=== PATIENT | male | born 1990 | race Caucasian/White ===

== ENCOUNTER → 2017-09-14 09:38 | Outpatient (CLI) | payer OTHER, SELFPAY ==
[2017-09-16 11:12] LABS: HIV-1/2 Ag & Ab Screen Negative (NEGAT)
== END ==
PROVIDERS: PCP Student in an Organized Health Care Education/Training Program; Visit Provider Student in an Organized Health Care Education/Training Program
DX: Z20.2 Contact with and (suspected) exposure to infections with a predominantly sexual mode of transmission (principal); Z11.3 Encounter for screening for infections with a predominantly sexual mode of transmission; Z11.4 Encounter for screening for human immunodeficiency virus [HIV]
CPT/HCPCS: 36415; 86609; 87389; 86631; 86632

== ENCOUNTER → 2017-09-26 03:12 | Outpatient (CLI) | payer OTHER, SELFPAY ==
[2017-09-27 15:00] LABS: Chlamydia Result Negative; GC Result Negative; Specimen Description URINE
== END ==
PROVIDERS: PCP Student in an Organized Health Care Education/Training Program; Visit Provider Student in an Organized Health Care Education/Training Program
DX: R30.0 Dysuria (principal); Z11.3 Encounter for screening for infections with a predominantly sexual mode of transmission
CPT/HCPCS: 87491; 87591

== ENCOUNTER 2018-02-06 00:42 | Emergency (ER) | payer MEDICAID, SELFPAY ==
[2018-02-06 00:49] VITALS: BP 133/90; PULSE 110; RESP 20; TEMP 37.1; O2SAT 98
--- NOTE | 2018-02-06 01:05 | DI.RAD_ITS ---
SYMPTOMS/DIAGNOSIS: COUGH FOR 3 WEEKS, PRODUCTIVE SPUTUM, SORE THROAT PA AND LATERAL CHEST: The heart is normal in size. The lungs are clear. The mediastinal structures and pleura appear intact. CONCLUSION: Normal chest.
--- NOTE | 2018-02-06 01:38 | DI.VRAD_ITS ---
EXAM: XR Chest, 2 Views EXAM DATE/TIME: 02/06/2018 1:07 AM CLINICAL HISTORY: 27 years old, male; Signs and symptoms; Cough and other: Sore throat and cough x 3 weeks; Patient HX: Productive cough, sore throat, x 3 weeks TECHNIQUE: XR of the chest, 2 views. COMPARISON: CR CHEST 2 VIEWS PA,LAT 03/03/2017 5:35 PM FINDINGS: Lungs: Unremarkable. No consolidation. Pleural space: Unremarkable. No pleural effusion. No pneumothorax. Heart/Mediastinum: Unremarkable. No cardiomegaly. Bones/joints: Unremarkable. IMPRESSION: No acute findings. Dictated and Authenticated by: Yosef Mackay MD. Ordering:SAY Hunter MD
--- NOTE | 2018-02-06 01:45 | ED.GENADUL_ITS ---
Discharge Plan Disposition Patient Disposition: HOME Condition: Good Discharge Details Chief Complaint: Sorethroat Clinical Impression: URI (upper respiratory infection), Sinusitis Primary Care Provider: Monica Estrada ED Provider: Dale Henry Home Meds and New Rx's Prescriptions: New fluticasone [fluticasone] 16 GM spray,suspension 1 spray Intranasal Q12H Qty: 15.8 RF: 0 sodium chloride [Saline Nasal] 0.65 % aerosol,spray 1 spray TRUDY Q6H Qty: 30 RF: 0 benzonatate [Tessalon Perles] 100 mg capsule 100 mg PO QID PRN (Reason: cough) Qty: 20 RF: 0 No Action ibuprofen 600 mg tablet 600 mg PO TID Qty: 30 RF: 0 ranitidine HCl [Zantac] 150 mg tablet 150 mg PO DAILY Qty: 90 RF: 0 qmymqvzpgr-zhepaoqjlgehp-wtuj 50-300-40 mg capsule 1 cap PO Q4H PRN Qty: 30 RF: 1 Protonix [address] for susp in packet 40 mg PO BID Qty: 180 RF: 1 tramadol 50 MG tablet 50 mg PO TID PRNQty: 14 RF: 1 diclofenac sodium 3 % gel 1 applic TP BID PRN (Reason: pain, stiffness) 90 Days Qty: 100 RF: 0 Lyrica 50 mg capsule 50 mg PO TID Qty: 90 RF: 0 desvenlafaxine 100 mg tablet extended release 24hr 100 mg PO DAILY Qty: 1 RF: 0 alprazolam [Xanax] 1 mg tablet 1 mg PO TID PRNRF: 0 ProAir HFA 200 PUFF HFA aerosol inhaler 2 puff Inhalation TID PRNRF: 0 acetaminophen [Mapap Extra Strength] 500 MG tablet 1 tab PO BID PRNRF: 0 Discharge Instructions Instructions: Sinusitis (ED), Upper Respiratory Infection (ED) Additional Instructions: Please take the medication as directed. If you notice any worsening of your symptoms, or any new symptoms such as vomiting, diarrhea, fever, chills, shortness of breath, chest pain, numbness, weakness, or fainting , please return immediately to the emergency department for reevaluation. Please follow up with your primary care provider as soon as possible for reassessment and reevaluation . As always, it was a pleasure participating in your medical care today. Referrals: Monica Estrada, [Primary Care Provider] - Medical Decision Making This is a pleasant 27-year-old male who presents with complaint of cough, and sinus congestion, mild sore throat. Cough is been present for the last few days, however sore throat has been present for the last 24-48 hours. He denies fever or chills. Does admit to notable nasal congestion. Physical exam demonstrates no evidence of otitis media, otitis externa. Strep test is negative. Lung sounds are clear and reassuring. Vital signs are reassuring. Patient's chest x-ray demonstrates no acute process. I feel feel the patient signs and symptoms are consistent with viral upper respiratory infection and chronic sinusitis. Will recommend saline nasal spray, and nasal steroid for sinusitis, Tessalon Perles for his cough. Discussed red flags which to return, the importance of fluid hydration, and close PCP follow-up. I have extensively reviewed the treatment plan and discharge instructions with the patient. I have addressed all patient concerns at this time. The patient was made aware of what symptoms to monitor for that would warrant a return to the emergency department. Discussed the plan with the patient, they demonstrate verbal understanding and agreement with our assessment and plan at this time. FINDINGS: Lungs: Unremarkable. No consolidation. Pleural space: Unremarkable. No pleural effusion. No pneumothorax. Heart/Mediastinum: Unremarkable. No cardiomegaly. Bones/joints: Unremarkable. IMPRESSION: No acute findings. Dictated and Authenticated by: Yosef Mackay MD. [facility] General Date/Time Provider Initiated Documentation: 02/06/18 00:51 . [facility] Narrative: This is a 27-year-old male with past medical history of asthma who presents today for evaluation of sore throat, nasal congestion mild cough. He denies any fever or chills at home. His cough is productive with what he calls chunky green sputum. He feels that it comes from his upper nose and sinuses. He admits to some mild pressure in front of his face in the region of the sinuses. He denies any purulent discharge from his nose. He denies any chest pain, or shortness of breath. Cough is slightly improved with his home albuterol inhaler. He denies any worsening factors. He denies any current tobacco use. He denies any IV or illicit drug use or recent surgical history. Patient has not been on antibiotics recently and has not been hospitalized recently. Patient has no other complaints at this time. No other modifying factors. Related Data Home Medications Medication Instructions Recorded Confirmed ProAir HFA 2 puff INHALATION TID PRN 01/19/17 02/06/18 acetaminophen [Mapap Extra 1 tab PO BID PRN 03/03/17 02/06/18 Strength] pantoprazole [Protonix] 40 mg PO BID #180 tab-cap 05/11/17 02/06/18 tramadol 50 mg PO TID PRN #14 tab-cap 06/30/17 02/06/18 flyxiumaeb-eelwzftgwvhqs-jzezpkwd 1 cap PO Q4H PRN #30 tab-cap 12/14/17 02/06/18 50 mg-300 mg-40 mg capsule ibuprofen 600 mg tablet 600 mg PO TID #30 tab 12/14/17 02/06/18 ranitidine 150 mg tablet 150 mg PO DAILY #90 tab 12/14/17 02/06/18 diclofenac 3 % topical gel 1 applic TP BID PRN 90 Days #100 gm 12/31/17 02/06/18 pregabalin 50 mg capsule 50 mg PO TID #90 cap 01/10/18 02/06/18 desvenlafaxine ER 100 mg 100 mg PO DAILY #1 tab 01/11/18 02/06/18 tablet,extended release 24 hour alprazolam 1 mg tablet 1 mg PO TID PRN tab 01/22/18 02/06/18 benzonatate [Tessalon Perles] 100 mg PO QID PRN #20 cap 02/06/18 fluticasone 1 spray INTRANASAL Q12H #15.8 gm 02/06/18 sodium chloride [Saline Nasal] 1 spray TRUDY Q6H #30 ml 02/06/18 Previous Rx's Medication Instructions Recorded pantoprazole [Protonix] 40 mg PO BID #180 tab-cap 05/11/17 bnqdibitbd-kniapwfllrget-mhdibhma 1 cap PO Q4H PRN #30 tab-cap 12/14/17 50 mg-300 mg-40 mg capsule ibuprofen 600 mg tablet 600 mg PO TID #30 tab 12/14/17 ranitidine 150 mg tablet 150 mg PO DAILY #90 tab 12/14/17 diclofenac 3 % topical gel 1 applic TP BID PRN 90 Days #100 gm 12/31/17 pregabalin 50 mg capsule 50 mg PO TID #90 cap 01/10/18 desvenlafaxine ER 100 mg 100 mg PO DAILY #1 tab 01/11/18 tablet,extended release 24 hour benzonatate [Tessalon Perles] 100 mg PO QID PRN #20 cap 02/06/18 fluticasone 1 spray INTRANASAL Q12H #15.8 gm 02/06/18 sodium chloride [Saline Nasal] 1 spray TRUDY Q6H #30 ml 02/06/18 Allergies Allergy/AdvReac Type Severity Reaction Status Date / Time lactose Allergy Intermediate Hives Verified 02/06/18 00:52 clindamycin Allergy Mild Itching Verified 02/06/18 00:52 NSAIDS (Non-Steroidal Allergy Mild Hives Verified 02/06/18 00:52 Anti-Inflamma Penicillins Allergy Mild Hives Verified 02/06/18 00:52 amoxicillin Allergy Unknown Verified 02/06/18 00:52 tolmetin Allergy Unknown Verified 02/06/18 00:52 sertraline Allergy suicide Verified 02/06/18 00:52 ideation General Stated Complaint: Sorethroat DERECK: 4 Review of Systems Review of Systems All systems reviewed & are unremarkable except as noted in HPI and below PFSH Social History household members: significant other housing: apartment lives independently: Yes current occupational status: unemployed current occupation: on leave from [employer] Smoking/Tobacco Use Status: Former Tobacco Use quit status: considering quitting alcohol intake: former substance use type: does not use Exam Narrative Exam Narrative: 1.Const: Well-nourished, Well-developed, appearing stated age 2.Eyes: PERRL, no conjunctival injection, and symmetrical lids. 3.ENT: Atraumatic external nose and ears. Moist MM. Neck: Symmetric, trachea midline, No thyromegaly. Minimal sinus congestion. No evidence of otitis media or externa. No erythema the posterior oropharynx uvula is midline. No evidence of peritonsillar abscess. 4.CVS: +S1/S2, No murmurs or gallops. Peripheral pulses 2+ and equal in all extremities. Brisk capillary refill in all extremities. 5.RESP: Unlabored respiratory effort. Clear to auscultation bilaterally. No wheezes rales or rhonchi 6.GI: Soft, Nontender/Nondistended, No hepatosplenomegaly. No guarding or rebound. 7.MSK: Normocephalic/Atraumatic, Extremities w/o deformity or ttp No cyanosis or clubbing, Normal movement of all extremities 8.Skin: Warm, Dry. No rashes or lesions. 9.Neuro: roof foreman II-XII grossly intact. Sensation grossly intact, no focal neurol ogic deficits. 10.Psych: (AAO) x3. Appropriate mood and affect Course Vital Signs Temperature 37.1 C 02/06/18 00:49 Pulse 110 H 02/06/18 00:49 Respiratory Rate 20 02/06/18 00:49 Blood Pressure 133/90 02/06/18 00:49 Pulse Oximetry 98 02/06/18 00:49 Temperature 37.1 C 02/06/18 00:49 Temperature Source Temporal Artery Scan 02/06/18 00:49 Pulse 110 H 02/06/18 00:49 Respiratory Rate 20 02/06/18 00:49 Respiratory Effort Non-Labored 02/06/18 00:49 Blood Pressure 133/90 02/06/18 00:49 Blood Pressure Position Sitting 02/06/18 00:49 Pulse Oximetry 98 02/06/18 00:49 Oxygen Delivery Method Room Air 02/06/18 00:49 Oxygen Flow Rate 0 02/06/18 00:49 Pain Level 6 02/06/18 00:49 Lab/Test Results Lab/Test Results: POC Strep Test-ANAM(Rapid) Start: 02/06/18 00:52 Freq: .Rapid Strep Test Status: Active Protocol: Document 02/06/18 01:09 BS (Rec: 02/06/18 01:09 BS [email or web address]) Strep test-ANAM(Rapid)-POC POC-Strep test-ANAM (Rapid) Negative POC-Strep test-ANAM (Rapid) Negative
[2018-02-06 01:57] VITALS: BP 133/90; PULSE 110; RESP 20; TEMP 37.1; O2SAT 98
[2018-02-06] MEDS: Benzonatate 100 MG CAP (01:57)
== END 2018-02-06 01:52 | disposition home or self-care (01) ==
PROVIDERS: Emergency Provider Student in an Organized Health Care Education/Training Program; PCP Student in an Organized Health Care Education/Training Program
DX: J06.9 Acute upper respiratory infection, unspecified (principal); J01.90 Acute sinusitis, unspecified
CPT/HCPCS: 87880; 99283; 71046

== ENCOUNTER 2018-05-10 16:44 | Outpatient (CLI) | payer MEDICAID, SELFPAY ==
[2018-05-13 10:59] LABS: Hepatitis B Surface Ag Negative (NEGAT)
[2018-05-13 11:05] LABS: HBs Antibody, Quant 47.6 mIU/mL; HIV-1/2 Ag & Ab Screen Negative (NEGAT); Hepatitis B Surface Ab Positive
[2018-05-14 13:15] LABS: Hep B Core Antibody Negative (NEGAT)
== END 2018-05-10 17:04 ==
PROVIDERS: PCP Student in an Organized Health Care Education/Training Program; Visit Provider Student in an Organized Health Care Education/Training Program
DX: Z20.2 Contact with and (suspected) exposure to infections with a predominantly sexual mode of transmission (principal); Z11.4 Encounter for screening for human immunodeficiency virus [HIV]; Z11.59 Encounter for screening for other viral diseases
CPT/HCPCS: 36415; 86704; 86706; 87340; 87389; 87529

== ENCOUNTER 2018-05-13 14:48 | Outpatient (REF) | payer MEDICAID, SELFPAY | END 2018-05-13 15:08 | LOC: LBN 14:48 | PROVIDERS: PCP Student in an Organized Health Care Education/Training Program; Visit Provider Student in an Organized Health Care Education/Training Program | DX: R69 Illness, unspecified (principal) | CPT/HCPCS: 87491; 87591 ==

== ENCOUNTER 2018-05-13 15:23 | Outpatient (CLI) | payer MEDICAID, SELFPAY ==
[2018-05-14 14:33] LABS: Chlamydia Result Negative; GC Result Negative; Specimen Description URINE
[2018-05-15 00:57] LABS: HSV 1 PCR, Blood Negative (Negative); HSV 2 PCR, Blood Negative (Negative)
== END 2018-05-13 15:43 ==
PROVIDERS: PCP Student in an Organized Health Care Education/Training Program; Visit Provider Student in an Organized Health Care Education/Training Program
DX: Z20.2 Contact with and (suspected) exposure to infections with a predominantly sexual mode of transmission (principal); Z11.3 Encounter for screening for infections with a predominantly sexual mode of transmission; Z11.59 Encounter for screening for other viral diseases
CPT/HCPCS: 36415; 87491; 87529; 87591

== ENCOUNTER 2019-09-02 03:12 | Outpatient (CLI) | payer MEDICAID, SELFPAY ==
[2019-09-02 11:03] LABS: Hemoglobin A1C 5.4 % (3.8-5.6)
[2019-09-02 11:31] LABS: ALT 40 U/L (16-63); AST 20 U/L (15-37); Albumin 3.8 g/dL (3.4-5.0); Alkaline Phosphatase 65 U/L (46-116); Anion Gap 10.3 mmol/L (3-11); BUN 10 mg/dL (7-18); Bilirubin, Total 0.7 mg/dL (0.2-1.0); CO2 27.7 mmol/L (21.0-32.0); CREATININE 0.89 mg/dL (0.70-1.30); Calcium 8.9 mg/dL (8.5-10.1); Calculated LDL 121 mg/dL (<100); Chloride 102 mmol/L (98-107); Cholesterol 194 mg/dL (<200); Glucose 85 mg/dL (74-106); HDL Cholesterol 33 mg/dL (40-60); Sodium 140 mmol/L (136-145); TSH (W/Ref FT4) 0.89 uIU/mL (0.36-3.74); Total Protein 6.5 g/dL (6.4-8.2); Triglyceride 203 mg/dL (<150)
== END 2019-09-02 03:32 ==
PROVIDERS: Nurse Practitioner; PCP Student in an Organized Health Care Education/Training Program; Visit Provider Student in an Organized Health Care Education/Training Program
DX: F32.9 Major depressive disorder, single episode, unspecified (principal); F41.9 Anxiety disorder, unspecified; I10 Essential (primary) hypertension; E66.9 Obesity, unspecified; Z83.3 Family history of diabetes mellitus
CPT/HCPCS: 36415; 80053; 80061; 83036; 84443

== ENCOUNTER 2019-09-27 18:31 | Emergency (ER) | payer MEDICAID, SELFPAY ==
[2019-09-27 18:38] VITALS: BP 139/84; PULSE 96; RESP 18; TEMP 36.2; O2SAT 100
--- NOTE | 2019-09-27 18:45 | DI.RAD_ITS ---
EXAM: XR FOOT LT COMPLETE CLINICAL HISTORY: stepped on nail, distal 5th MT tender. TECHNIQUE: 2D digital imaging was performed. COMPARISON: No exams were available for comparison FINDINGS: BONES: No acute fracture is present. No bony destructive lesion is seen. JOINTS: No dislocation present. SOFT TISSUE: Normal. IMPRESSION: Unremarkable radiographs of the left foot. DATA REPOSITORY: RADIATION DOSE DELIVERED:
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
--- NOTE | 2019-09-27 19:15 | DI.VRAD_ITS ---
PROCEDURE INFORMATION: Exam: XR Left Foot Complete Exam date and time: 09/27/2019 19:04 Age: 29 years old Clinical indication: Pain; Toes; Left; Patient HX: Stepped on nail, distal 5th mt tender TECHNIQUE: Imaging protocol: XR Left foot. Views: 3 or more views. COMPARISON: No relevant prior studies available. FINDINGS: Bones/joints: No acute fracture or subluxation. Soft tissues: No radiopaque foreign body or emphysema. IMPRESSION: No acute bony pathology. Dictated and Authenticated by: Babita Vega MD. Ordering:GERSON Goldberg MD
== END 2019-09-27 19:45 | disposition home or self-care (01) ==
PROVIDERS: Emergency Provider Student in an Organized Health Care Education/Training Program; PCP Student in an Organized Health Care Education/Training Program
DX: S91.332A Puncture wound without foreign body, left foot, initial encounter (principal); W45.0XXA Nail entering through skin, initial encounter
CPT/HCPCS: 99283; 73630; E0114

== ENCOUNTER 2019-11-17 11:58 | Outpatient (CLI) | payer MEDICAID, SELFPAY ==
[2019-11-19 02:51] LABS: Patient Race White; SARS-CoV-2 RNA Undetected (Undetected); SARS-CoV-2 Specimen Source Nasopharynx
== END 2019-11-17 12:18 ==
PROVIDERS: PCP Student in an Organized Health Care Education/Training Program; Visit Provider Family Medicine
DX: R05 Cough (principal)
CPT/HCPCS: U0003

== ENCOUNTER 2020-03-30 03:02 | Emergency (ER) | payer MEDICAID, SELFPAY ==
[2020-03-30 03:07] VITALS: BP 131/80; PULSE 69; RESP 18; TEMP 36.5; O2SAT 98
--- NOTE | 2020-03-30 03:15 | DI.CT_ITS ---
EXAM: CT BRAIN NECK CTA CLINICAL HISTORY: severe posterior head and neck pain. TECHNIQUE: Imaging Protocol: Axial CT angiography was performed with multi-slice acquisition and mu lti-planar and/or 3D reconstructions. CONTRAST MATERIAL: Intravenous: Omnipaque 350 Contrast volume:structured data in ml COMPARISON: No exams were available for comparison FINDINGS: CT angiography of the cervical cranial region was performed according to the usual protocol with intr avenous infusion of 85 cc of Omnipaque 350.. Initial noncontrast scanning of the head is unremarkable. Visualized lung apices are clear. Visualized portions of thoracic aorta and pulmonary arterial circul ation are unremarkable. There is no evidence of a cervical mass or adenopathy. The tracheal laryngeal structures appear intact. The common, internal, and external carotid arteries are within normal limits in the cervical region w ith no evidence of aneurysm, stenosis, or dissection. The vertebral arteries are unremarkable in appearance in the cervical region with no evidence of aneu rysm, stenosis, or dissection. Intracranial portions of the internal carotid arteries appear normal with no evidence of aneurysm, st enosis, or dissection. Intracranial vertebral arteries and basilar artery appear normal with no evidence of aneurysm, stenos is or dissection. No aneurysm identified in the region of the miyzkb-bj-Kfiuls. The anterior, middle, and posterior cer ebral arteries and major branches appear intact with no evidence of aneurysm, stenosis, or dissection . No enhancing brain lesion identified. 5 minutes delayed images show no evidence of intracranial mass lesion or enhancing lesion. IMPRESSION: Negative CT angiography of the cervical cranial region. RADIATION DOSE DELIVERED: 2,627.54mGy.cmTotal DLP 2,627.54mGy.cm Total DLP DATA REPOSITORY: All CT scans at this facility are submitted to the National Radiology Data Registry (NRDR) Dose Index Registry (DIR) with the [employer] (A[employer]). RADIATION OPTIMIZATION: All CT scans at this facility use at least one of these dose optimization te chniques: automated exposure control; mA and/or kV adjustment per patient size (includes targeted exa ms where dose is matched to clinical indication); or iterative reconstruction.
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
[2020-03-30] MEDS: methylPREDNISolone SUCC 125 MG VIAL IVP (03:36)
[2020-03-30] MEDS: Ketorolac 15 MG/ML VIAL IVP (03:36)
[2020-03-30 03:42] LABS: Abs Immature Grans 0.08 10^3/uL (0.0-0.06); Absolute Basophil Count 0.06 10^3/uL (0.0-0.2); Absolute Eosinophil Count 0.47 10^3/uL (0.0-0.7); Absolute Monocyte Count 0.88 10^3/uL (0.1-0.8); Basophils % 0.5; Eosinophils % 4.2; HCT 48.3 % (40.0-50.0); HGB 16.4 g/dL (13.5-17.5); Immature Grans % 0.7; Lymphocytes % 34.1; MCH 29.2 pg (27.0-33.0); MCV 86.1 fL (80-95); MPV 9.9 fL (8.0-11.0); Monocytes % 7.9; Neutrophils % 52.6; Nucleated RBC 0 %; Platelet Count 291 10^3/uL (130-400); RBC 5.61 10^6/uL (4.36-5.78); RDW 13.8 % (11.8-14.1); WBC 11.13 10^3/uL (4.4-10.8)
[2020-03-30 03:43] LABS: Absolute Neutrophil Count 5.85 10^3/uL (1.2-6.7)
[2020-03-30 03:56] LABS: ALT 32 U/L (16-63); AST 16 U/L (15-37); Albumin 4.1 g/dL (3.4-5.0); Alkaline Phosphatase 69 U/L (46-116); BUN 10 mg/dL (7-18); Bilirubin, Total 0.3 mg/dL (0.2-1.0); Calcium 8.8 mg/dL (8.5-10.1); Chloride 101 mmol/L (98-107); Glucose 102 mg/dL (74-106); Potassium 3.7 mmol/L (3.5-5.1); Sodium 140 mmol/L (136-145); Total Protein 7.5 g/dL (6.4-8.2)
[2020-03-30 04:03] VITALS: BP 124/71; PULSE 85; RESP 15; O2SAT 97
[2020-03-30] MEDS: Omnipaque 350 MG/ML 100 ML BTL IJ (04:07)
[2020-03-30] MEDS: Normal Saline Flush 10 ML SYR IVP (04:21)
--- NOTE | 2020-03-30 04:27 | DI.VRAD_ITS ---
PROCEDURE INFORMATION: Exam: CT Angiography Head With Contrast Exam date and time: 03/30/2020 3:46 AM Age: 29 years old Clinical indication: Headache; Patient HX: Severe head and neck pain TECHNIQUE: Imaging protocol: Computed tomography angiography of the head with intravenous contrast. 3D rendering (Not supervised by radiologist): MIP and/or 3D reconstructed images were created by the technologist. Radiation optimization: All CT scans at this facility use at least one of these dose optimization techniques: automated exposure control; mA and/or kV adjustment per patient size (includes targeted exams where dose is matched to clinical indication); or iterative reconstruction. Contrast material: OMNIPAQUE 350; Contrast volume: 85 ml; Contrast route: INTRAVENOUS (IV); COMPARISON: No relevant prior studies available. FINDINGS: ANTERIOR CIRCULATION: Right internal carotid artery: Unremarkable. Intracranial segment is patent with no significant stenosis. No aneurysm. Right middle cerebral artery: Unremarkable. No occlusion or significant stenosis. No aneurysm. Right anterior cerebral artery: Unremarkable. No occlusion or significant stenosis. No aneurysm. Left internal carotid artery: Unremarkable. Intracranial segment is patent with no significant stenosis. No aneurysm. Left middle cerebral artery: Unremarkable. No occlusion or significant stenosis. No aneurysm. Left anterior cerebral artery: Unremarkable. No occlusion or significant stenosis. No aneurysm. POSTERIOR CIRCULATION: Right vertebral artery: Unremarkable. No occlusion or significant stenosis. No aneurysm. Left vertebral artery: Unremarkable. No occlusion or significant stenosis. No aneurysm. Basilar artery: Unremarkable. No occlusion or significant stenosis. No aneurysm. Right posterior cerebral artery: Unremarkable. No occlusion or significant stenosis. No aneurysm. Left posterior cerebral artery: Unremarkable. No occlusion or significant stenosis. No aneurysm. Brain: No definite mass, mass effect, or midline shift. Cerebral ventricles: No ventriculomegaly. Bones/joints: Unremarkable. No acute fracture. Soft tissues: Unremarkable. IMPRESSION: No large vessel stenosis or occlusion. PROCEDURE INFORMATION: Exam: CT Angiography Neck With Contrast Exam date and time: 03/30/2020 3:46 AM Age: 29 years old Clinical indication: Headache; Patient HX: Severe head and neck pain TECHNIQUE: Imaging protocol: Computed tomography angiography of the neck with intravenous contrast. 3D rendering (Not supervised by radiologist): MIP and/or 3D reconstructed images were created by the technologist. Radiation optimization: All CT scans at this facility use at least one of these dose optimization techniques: automated exposure control; mA and/or kV adjustment per patient size (includes targeted exams where dose is matched to clinical indication); or iterative reconstruction. Contrast material: OMNIPAQUE 350; Contrast volume: 85 ml; Contrast route: INTRAVENOUS (IV); COMPARISON: No relevant prior studies available. FINDINGS: Right common carotid artery: No stenosis. No dissection or occlusion. Right internal carotid artery: No stenosis of the extracranial segment. No dissection or occlusion. Right external carotid artery: No occlusion or stenosis of the origin. Right vertebral artery: No stenosis. No dissection or occlusion. Left common carotid artery: No stenosis. No dissection or occlusion. Left internal carotid artery: No stenosis of the extracranial segment. No dissection or occlusion. Left external carotid artery: No occlusion or stenosis of the origin. Left vertebral artery: No stenosis. No dissection or occlusion. Bones/joints: No acute fracture. Soft tissues: Normal. No significant soft tissue swelling. IMPRESSION: No stenosis or occlusion. REFERENCES: NASCET CRITERIA. The degree of internal carotid artery stenosis is based on NASCET criteria. Normal is no stenosis. Mild is less than 50% stenosis. Moderate is 50-69% stenosis. Severe is 70% to 99% stenosis. Total occlusion is no detectable patent lumen. Dictated and Authenticated by: Juan Coulter MD. Ordering:KEERTHI Navas MD
[2020-03-30 04:37] VITALS: BP 111/67; PULSE 83; O2SAT 95
--- NOTE | 2020-03-30 09:21 | NUR.NOTE ---
Pt called stating he lost his prescription, asked to be called into [facility]. Verified with CHERRI Coronado. Rx called in to [facility] voicemail for prednisone 60mg daily x 4 days.
== END 2020-03-30 04:45 | disposition home or self-care (01) ==
PROVIDERS: Emergency Provider Emergency Medicine; PCP Student in an Organized Health Care Education/Training Program
DX: M54.2 Cervicalgia (principal); R51.9 Headache, unspecified
CPT/HCPCS: 70496; 70498; 80053; 96374; 96375; 99285; 85025; 99284; J1885; J2930; J3490

== ENCOUNTER 2020-05-28 02:29 | Outpatient (CLI) | payer MEDICAID, SELFPAY ==
[2020-05-28 07:45] LABS: Abs Immature Grans 0.03 10^3/uL (0.0-0.06); Absolute Basophil Count 0.05 10^3/uL (0.0-0.2); Absolute Lymphocyte Count 3.18 10^3/uL (1.2-3.4); Absolute Monocyte Count 0.66 10^3/uL (0.1-0.8); Absolute Neutrophil Count 4.13 10^3/uL (1.2-6.7); Basophils % 0.6; Eosinophils % 6.9; HCT 47.6 % (40.0-50.0); HGB 15.6 g/dL (13.5-17.5); Immature Grans % 0.3; Lymphocytes % 36.8; MCH 29.7 pg (27.0-33.0); MCHC 32.8 % (32.0-36.0); MCV 90.7 fL (80-95); MPV 9.6 fL (8.0-11.0); Monocytes % 7.6; Neutrophils % 47.8; Nucleated RBC 0 %; Platelet Count 282 10^3/uL (130-400); RBC 5.25 10^6/uL (4.36-5.78); RDW 14.6 % (11.8-14.1); RDW-SD 48.3 fL; WBC 8.65 10^3/uL (4.4-10.8)
[2020-05-28 07:52] LABS: Hemoglobin A1C 5.5 % (<5.7)
[2020-05-28 09:00] LABS: ALT 47 U/L (16-63); AST 20 U/L (15-37); Albumin 3.8 g/dL (3.4-5.0); Alkaline Phosphatase 65 U/L (46-116); Anion Gap 7.6 mmol/L (3-11); BUN 13 mg/dL (7-18); Bilirubin, Total 0.5 mg/dL (0.2-1.0); CO2 28.4 mmol/L (21.0-32.0); Calcium 8.8 mg/dL (8.5-10.1); Calculated LDL 170 mg/dL (<100); Chloride 108 mmol/L (98-107); Cholesterol 233 mg/dL (<200); Glucose 99 mg/dL (74-106); HDL Cholesterol 39 mg/dL (40-60); Potassium 4.4 mmol/L (3.5-5.1); Sodium 144 mmol/L (136-145); Total Protein 6.6 g/dL (6.4-8.2); Triglyceride 123 mg/dL (<150); Vitamin B12 1990 pg/mL (193-986)
[2020-05-28 09:24] LABS: FREE T4 0.97 ng/dL (0.76-1.46)
[2020-06-02 12:56] LABS: 25-Hydroxy D Total 30 ng/mL; 25-Hydroxy D2 <4.0 ng/mL; 25-Hydroxy D3 30 ng/mL
== END 2020-05-28 02:30 | disposition home or self-care (01) ==
LOC: LBO 02:30
PROVIDERS: PCP Student in an Organized Health Care Education/Training Program; Visit Provider Psychiatry & Neurology Psychiatry
DX: F43.10 Post-traumatic stress disorder, unspecified (principal); Z79.899 Other long term (current) drug therapy
CPT/HCPCS: 36415; 80053; 80061; 82306; 82607; 83036; 83735; 84439; 84481; 85025; 86140

== ENCOUNTER 2020-08-06 08:52 | Outpatient (CLI) | payer MEDICAID, SELFPAY ==
[2020-08-06 13:09] LABS: Anion Gap 7.5 mmol/L (3-11); BUN 10 mg/dL (7-18); CO2 28.5 mmol/L (21.0-32.0); CREATININE 0.9 mg/dL (0.70-1.30); Calcium 9.3 mg/dL (8.5-10.1); Chloride 105 mmol/L (98-107); Ferritin 65 ng/mL (26-388); Glucose 73 mg/dL (74-106); Potassium 4.3 mmol/L (3.5-5.1); Sodium 141 mmol/L (136-145); TSH (W/Ref FT4) 0.67 uIU/mL (0.36-3.74)
[2020-08-06 13:27] LABS: FREE T4 0.94 ng/dL (0.76-1.46)
[2020-08-06 17:11] LABS: T3,Free 4.2 pg/mL (2.8-5.3)
[2020-08-06 17:51] LABS: Thyroglobulin Antibody <15 U/mL (<=60)
== END 2020-08-06 08:53 | disposition home or self-care (01) ==
PROVIDERS: PCP Student in an Organized Health Care Education/Training Program; Visit Provider Student in an Organized Health Care Education/Training Program
DX: R79.89 Other specified abnormal findings of blood chemistry (principal); G25.81 Restless legs syndrome; R53.83 Other fatigue; F41.8 Other specified anxiety disorders; R94.6 Abnormal results of thyroid function studies; Z83.49 Family history of other endocrine, nutritional and metabolic diseases
CPT/HCPCS: 36415; 80048; 82728; 84439; 84443; 84481; 86800

== ENCOUNTER 2020-09-01 01:50 | Outpatient (CLI) | payer MEDICAID, SELFPAY ==
--- NOTE | 2020-09-01 09:00 | DI.US_ITS ---
Exam(s) US THYROID EXAM: US THYROID CLINICAL HISTORY: Evaluate thyroid, asymmetry,enlargement of thyroid,e04.9,e07.9. TECHNIQUE: Ultrasound thyroid performed using standard protocol. COMPARISON: No exams were available for comparison FINDINGS: Both thyroid lobes are symmetrically prominent, as is the isthmus. Echo architecture both lobes is s omewhat heterogeneous, similar in both lobes as well as the isthmus. There are no discernible nodule s nor cysts in either thyroid lobe. Thyroid gland is not hyperemic. RIGHT THYROID LOBE: Measures 2.0 cm AP x 2.6 cm wide x 6.2 cm craniocaudal No nodules LEFT THYROID LOBE: Measures 2.1 cm AP x 2.9 wide x 6.0 cm craniocaudal Also no nodules ISTHMUS: 5 millimeter thickness (upper normal is 3 millimeters) LYMPH NODES: There is slightly prominent lymph nodes bilaterally. There are 2 on the right side doyle uring 3 x 0.6 x 0.9 cm and 2.1 x 0.6 x 0.9 cm.. One lymph node in left side of the neck measuring 2. 5 x 0.5 x 2.0 cm. These are probably reactive IMPRESSION: 1. Both thyroid lobes as well as the isthmus are somewhat prominent in size and exhibit diffuse heter ogeneous echotexture but no discernible nodules. The gland is not hyperemic and therefore Graves dis ease is unlikely. Also unlikely to be acute thyroiditis. 2. Slightly enlarged lymph nodes bilateral as described above. These are probably reactive. DATA REPOSITORY:
== END 2020-09-01 02:10 ==
PROVIDERS: PCP Student in an Organized Health Care Education/Training Program; Visit Provider Student in an Organized Health Care Education/Training Program
DX: E04.9 Nontoxic goiter, unspecified (principal); R59.0 Localized enlarged lymph nodes
CPT/HCPCS: 76536

== ENCOUNTER 2020-10-27 23:13 | Emergency (ER) | payer MEDICAID, SELFPAY ==
[2020-10-27 23:16] VITALS: BP 136/89; PULSE 83; RESP 18; TEMP 36.2; O2SAT 98
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
[2020-10-27] MEDS: diazePAM 2 MG TAB PO (23:48)
[2020-10-27] MEDS: Ketorolac 30 MG/ML VIAL IM (23:49)
== END 2020-10-27 23:53 | disposition home or self-care (01) ==
PROVIDERS: Emergency Provider Emergency Medicine; PCP Student in an Organized Health Care Education/Training Program
DX: M62.838 Other muscle spasm (principal)
CPT/HCPCS: 96372; 99284; 99283; J1885

== ENCOUNTER 2021-05-16 04:13 | Outpatient (CLI) | payer MEDICAID, SELFPAY ==
[2021-05-16 08:24] LABS: ALT 50 U/L (16-63); AST 21 U/L (15-37); Alkaline Phosphatase 65 U/L (46-116); Anion Gap 9.1 mmol/L (3-11); BUN 13 mg/dL (7-18); Bilirubin, Total 0.4 mg/dL (0.2-1.0); CO2 30.9 mmol/L (21.0-32.0); CREATININE 0.9 mg/dL (0.70-1.30); Calcium 8.8 mg/dL (8.5-10.1); Calculated LDL 119 mg/dL (<100); Chloride 102 mmol/L (98-107); Cholesterol 202 mg/dL (<200); Glucose 95 mg/dL (74-106); HDL Cholesterol 42 mg/dL (40-60); Sodium 142 mmol/L (136-145); TSH (W/Ref FT4) 1.26 uIU/mL (0.36-3.74); Triglyceride 205 mg/dL (<150)
[2021-05-16 17:58] LABS: T3,Free 4.5 pg/mL (2.8-5.3)
== END 2021-05-16 04:14 | disposition home or self-care (01) ==
LOC: LBO 04:13
PROVIDERS: PCP Student in an Organized Health Care Education/Training Program
DX: I10 Essential (primary) hypertension (principal); E03.9 Hypothyroidism, unspecified; Z13.220 Encounter for screening for lipoid disorders; E07.9 Disorder of thyroid, unspecified
CPT/HCPCS: 36415; 80053; 80061; 84443; 84481

== ENCOUNTER 2021-09-01 01:36 | Outpatient (CLI) | payer MEDICAID, SELFPAY ==
--- NOTE | 2021-09-01 07:30 | DI.RAD_ITS ---
Exam(s) XR CERVICAL SPINE COMP 4-5V EXAM: XR CERVICAL SPINE COMP 4-5V CLINICAL HISTORY: evaluate curvature, r/o bony pathology, neck pain, M54.2. TECHNIQUE: 2D digital imaging was performed. COMPARISON: No exams were available for comparison FINDINGS: Seven views No evidence of fracture, listhesis, nor offset of the spinal laminar line. All the disc spaces exhib it normal height.. Facet joints unremarkable. Bone density normal. No osseous lesions. No Luschka joint osteophytes. No cervical ribs. IMPRESSION: No significant findings DATA REPOSITORY: RADIATION DOSE DELIVERED:
[2021-09-01 12:13] LABS: Abs Immature Grans 0.03 10^3/uL (0.0-0.06); Absolute Basophil Count 0.05 10^3/uL (0.0-0.2); Absolute Eosinophil Count 0.43 10^3/uL (0.0-0.7); Absolute Lymphocyte Count 3.23 10^3/uL (1.2-3.4); Absolute Monocyte Count 0.55 10^3/uL (0.1-0.8); Absolute Neutrophil Count 4.36 10^3/uL (1.2-6.7); Basophils % 0.6; HCT 49.1 % (40.0-50.0); HGB 16.3 g/dL (13.5-17.5); Immature Grans % 0.3; Lymphocytes % 37.3; MCH 29.1 pg (27.0-33.0); MCHC 33.2 % (32.0-36.0); MCV 88 fL (80-95); Monocytes % 6.4; Neutrophils % 50.4; Platelet Count 306 10^3/uL (130-400); RBC 5.61 10^6/uL (4.36-5.78); RDW 13.4 % (11.8-14.1); RDW-SD 43.2 fL; WBC 8.65 10^3/uL (4.4-10.8)
[2021-09-01 12:45] LABS: Hemoglobin A1C 5.4 % (<5.7)
[2021-09-01 13:04] LABS: *AMPHETAMINES SCREEN URINE Positive (Negative); *BARBITURATES SCREEN URINE Negative (Negative); *BENZODIAZEPINES SCREEN URINE Positive (Negative); Cannabinoids THC Negative (Negative); Cocaine Screen,Urine Negative (Negative); METHADONE URINE SCREEN Negative (Negative); OPIATES URINE SCREEN Negative (Negative)
[2021-09-01 13:06] LABS: Tricyclic Antidepressants Negative (Negative)
[2021-09-01 13:26] LABS: ALT 36 U/L (16-63); AST 17 U/L (15-37); Albumin 4.4 g/dL (3.4-5.0); Alkaline Phosphatase 70 U/L (46-116); BUN 11 mg/dL (7-18); Bilirubin, Total 0.4 mg/dL (0.2-1.0); CREATININE 1.1 mg/dL (0.70-1.30); Calcium 9.2 mg/dL (8.5-10.1); Calculated LDL 176 mg/dL (<100); Chloride 102 mmol/L (98-107); Cholesterol 247 mg/dL (<200); Ferritin 89 ng/mL (26-388); Folate 10.8 ng/mL (8.6-20.0); Glucose 95 mg/dL (74-106); HDL Cholesterol 41 mg/dL (40-60); Magnesium 1.7 mg/dL (1.8-2.4); Potassium 3.5 mmol/L (3.5-5.1); Sodium 140 mmol/L (136-145); TSH 0.77 uIU/mL (0.36-3.74); Total Protein 7.9 g/dL (6.4-8.2); Triglyceride 150 mg/dL (<150); Vitamin B12 1960 pg/mL (193-986)
[2021-09-01 13:56] LABS: C-Reactive Protein 0.18 mg/dL (0.0-0.3); FREE T4 1.08 ng/dL (0.76-1.46)
[2021-09-01 22:09] LABS: T3,Free 4.2 pg/mL (2.8-5.3)
[2021-09-02 10:17] LABS: Hepatitis B Surface Ag Negative (Negative)
[2021-09-02 10:43] LABS: HIV-1/2 Ag & Ab Screen Negative (Negative)
[2021-09-02 10:53] LABS: Hepatitis C Ab w Rflx HCV PCR Negative (Negative)
[2021-09-02 11:13] LABS: HSV Type 1 Ab, IgG Negative (Negative); HSV Type 2 Ab, IgG Positive (Negative)
[2021-09-02 11:53] LABS: Syphilis Serology (RPR) Negative (Negative)
[2021-09-06 13:18] LABS: 2-OH-Ethyl-Flurazepam Negative ng/mL (Cutoff: 10); 7-NH-Clonazepam Negative ng/mL (Cutoff: 10); 7-NH-Flunitrazepam Negative ng/mL (Cutoff: 10); Alpha OH-Alprazolam 76 ng/mL (Cutoff: 10); Alpha-OH Midazolam Negative ng/mL (Cutoff: 10); Alpha-OH-Triazolam Negative ng/mL (Cutoff: 10); Alprazolam 38 ng/mL (Cutoff: 10); Benzodiazepines Interpretation Positive.; Chlordiazepoxide Negative ng/mL (Cutoff: 10); Clobazam Negative ng/mL (Cutoff: 10); Clonazepam Negative ng/mL (Cutoff: 10); Diazepam Negative ng/mL (Cutoff: 10); Flurazepam Negative ng/mL (Cutoff: 10); Lorazepam Negative ng/mL (Cutoff: 10); Midazolam Negative ng/mL (Cutoff: 10); N-Desmethylclobazam Negative ng/mL (Cutoff: 10); Prazepam Negative ng/mL (Cutoff: 10); Temazepam Negative ng/mL (Cutoff: 10); Triazolam Negative ng/mL (Cutoff: 10); Zolpidem Carboxylic acid Negative ng/mL (Cutoff: 10)
[2021-09-08 11:47] LABS: Fentanyl Interpretation Negative.; Fentanyl by LC-MS/MS Negative; Norfentanyl by LC-MS/MS Negative
[2021-09-09 12:35] LABS: Methylphenidate (Ritalin), S <1.0 ng/ml (5.0 - 20.0)
== END 2021-09-01 01:37 | disposition home or self-care (01) ==
PROVIDERS: PCP Student in an Organized Health Care Education/Training Program; Visit Provider Psychiatry & Neurology Psychiatry
DX: M54.2 Cervicalgia (principal); Z11.3 Encounter for screening for infections with a predominantly sexual mode of transmission; E55.9 Vitamin D deficiency, unspecified; K40.90 Unilateral inguinal hernia, without obstruction or gangrene, not specified as recurrent; M62.838 Other muscle spasm; Z79.1 Long term (current) use of non-steroidal anti-inflammatories (NSAID); Z83.3 Family history of diabetes mellitus; Z20.2 Contact with and (suspected) exposure to infections with a predominantly sexual mode of transmission; Z13.220 Encounter for screening for lipoid disorders; Z11.4 Encounter for screening for human immunodeficiency virus [HIV]; Z11.59 Encounter for screening for other viral diseases
CPT/HCPCS: 36415; 80048; 80053; 80061; 80307; 80360; 82306; 86803; 87340; 87389; 72050; 80346; 80354; 82607; 82728; 82746; 83036; 83735; 84439; 84443; 84481; 85025; 86140; 86592; 86631; 86632; 86695; 86696

== ENCOUNTER 2022-01-03 10:16 | Outpatient (REF) | payer MEDICAID, SELFPAY ==
[2022-01-04 02:43] LABS: Influenza A RNA Result Negative (Negative); Influenza B RNA Result Negative (Negative); RSV RNA Result Negative (Negative)
[2022-01-04 02:59] LABS: COVID-19 RT-PCR UVMMC Result Negative (Negative)
== END 2022-01-03 10:17 | disposition home or self-care (01) ==
LOC: LBN 10:16
PROVIDERS: Nurse Practitioner; PCP Student in an Organized Health Care Education/Training Program; Visit Provider Student in an Organized Health Care Education/Training Program
DX: J02.9 Acute pharyngitis, unspecified (principal); R05.8 Other specified cough; Z20.822 Contact with and (suspected) exposure to COVID-19
CPT/HCPCS: 87631; U0003; 87070

== ENCOUNTER 2022-12-15 14:00 | Outpatient (CLI) | payer BC, MEDICAID, SELFPAY ==
[2022-12-15 14:15] LABS: ALT 49 U/L (16-63); AST 17 U/L (15-37); Albumin 3.7 g/dL (3.4-5.0); Alkaline Phosphatase 55 U/L (46-116); Bilirubin, Direct 0.1 mg/dL (0.0-0.2); Bilirubin, Total 0.5 mg/dL (0.2-1.0); TSH (W/Ref FT4) 0.47 uIU/mL (0.36-3.74); Total Protein 6.8 g/dL (6.4-8.2)
[2022-12-15 14:40] LABS: Vitamin D 25 Total 27.7 ng/mL (30-100)
[2022-12-15 22:23] LABS: T3,Free 4.4 pg/mL (2.8-5.3)
[2022-12-17 11:02] LABS: Lab Add On Test DONE
[2022-12-17 11:35] LABS: FREE T4 0.85 ng/dL (0.76-1.46)
[2022-12-19 16:53] LABS: Apolipoprotein B, Serum 124 mg/dL; Beta VLDL Cholesterol Not Detected mg/dL (<15); Beta VLDL Triglycerides Not Detected mg/dL (<15); Cholesterol, Total, CDC 207 mg/dL; Chylomicron Cholesterol Not Detected; Chylomicron Triglycerides Not Detected; HDL Cholesterol, CDC 38 mg/dL (>=40); LDL Cholesterol 156 mg/dL; LDL Triglycerides 47 mg/dL (<=50); Lp(a) Cholesterol <5 mg/dL (<5); LpX Not detected; Triglycerides, CDC 104 mg/dL; VLDL Cholesterol 13 mg/dL (<30); VLDL Triglycerides 44 mg/dL (<120)
== END 2022-12-15 14:01 | disposition home or self-care (01) ==
LOC: LBO 14:00
PROVIDERS: PCP Student in an Organized Health Care Education/Training Program; Visit Provider Student in an Organized Health Care Education/Training Program
DX: R79.89 Other specified abnormal findings of blood chemistry (principal); Z79.1 Long term (current) use of non-steroidal anti-inflammatories (NSAID); E05.90 Thyrotoxicosis, unspecified without thyrotoxic crisis or storm; Z82.49 Family history of ischemic heart disease and other diseases of the circulatory system; G47.33 Obstructive sleep apnea (adult) (pediatric); K21.9 Gastro-esophageal reflux disease without esophagitis; J45.909 Unspecified asthma, uncomplicated
CPT/HCPCS: 36415; 80061; 80076; 82306; 82172; 82664; 83735; 84439; 84443; 84481

== ENCOUNTER → 2022-12-27 01:10 | Outpatient (CLI) | payer BC, MEDICAID, SELFPAY ==
--- NOTE | 2022-12-27 08:00 | DI.US_ITS ---
Exam(s) US THYROID EXAM: US THYROID CLINICAL HISTORY: re-evaluate thyroid for nodules, changes,hyperparathyroidism,E05.90. TECHNIQUE: Ultrasound thyroid performed using standard protocol. COMPARISON: US US THYROID from 09/01/2020 FINDINGS: Both thyroid lobes exhibit upper normal size and homogeneous echotexture. There are no ominous solid nodules in either lobe nor within the isthmus. RIGHT THYROID LOBE: Measures 1.8 cm AP x 0.6 cm wide x 5 cm craniocaudal No focal findings ISTHMUS: Normal thickness. There are no nodules in the isthmus. LEFT THYROID LOBE: Measures 1.9 cm AP x 2.8 wide x 5 cm craniocaudal There is a solitary focal finding in the inferior aspect of the left lobe. This measures 6 x 5 mm an d has appearance of a benign colloid cyst. Therefore does not undergo TiRads grading. LYMPH NODES: There is no significant adenopathy. IMPRESSION: 1. Thyroid gland size is upper normal 2. There is a solitary 6 x 5 mm colloid cyst in the inferior aspect of the left thyroid lobe. 3. There are no solid nodules in the thyroid gland. 4. There is no lymphadenopathy DATA REPOSITORY:
== END ==
PROVIDERS: PCP Student in an Organized Health Care Education/Training Program; Visit Provider Student in an Organized Health Care Education/Training Program
DX: E05.90 Thyrotoxicosis, unspecified without thyrotoxic crisis or storm (principal); L74.9 Eccrine sweat disorder, unspecified; Z82.49 Family history of ischemic heart disease and other diseases of the circulatory system
CPT/HCPCS: 76536